=== PATIENT | female | born 1970 | race Caucasian/White ===

== ENCOUNTER 2025-11-01 12:31 | Emergency (ER) | payer OTHER, SELFPAY ==
[2025-11-01 12:39] VITALS: BP 145/69
[2025-11-01 13:43] LABS: Urine Character Clear (Clear)
--- NOTE | 2025-11-01 14:06 | ED.GENMED ---
History of Present Illness
General
Chief Complaint: Flank Pain
Source: patient
Exam Limitations: none
Time Seen by Provider: 11/01/25 13:09
Nursing documentation reviewed up to this point in time: agreed with
History of Present Illness
History of Present Illness:
Patient is a 55-year-old healthy female who presents to the emergency department for evaluation of right flank pain. Patient states she gradually noticed discomfort in her right back/flank around 5 PM yesterday evening. She states this morning
pain was worse prompting evaluation the emergency department. She describes an aching/sharp pain in her right mid back without radiation into her abdomen. Pain is worse with certain movements or coughing. While in the waiting room�she did not
endorse mild chest discomfort which is not exertional or pleuritic in nature. She thinks this may have been related to stress.
Patient denies any fever, chills, nausea or vomiting. No dysuria or hematuria. No chest pain or shortness of breath
Patient reports a past history of kidney stones > 20 years ago. She recently had a stress test performed by cardiology which was unremarkable.
No recent travel or recent surgeries. However�she did recently start hormone replaced therapy.
No recent inciting injury or trauma.
Review of Systems
Review of Systems
Allergies reviewed?: Yes
All Other Systems: ROS reviewed and negative except as documented in HPI and ROS
Phy Exam
Physical Exam
Physical Exam:
Vitals: Mildly hypertensive, otherwise vital signs stable. Afebrile
General: Patient is well appearing, no acute distress
Skin: Warm and dry, no rashes or lesions
Head: Normocephalic, atraumatic
Eyes: Sclera nonicteric.
Throat: Protecting airway
Neck: Normal ROM, no cervical spine tenderness, no meningismus
Cardiac: Regular rate and rhythm, no murmurs.
Pulm: Normal respiratory effort. Lungs clear bilaterally
Abdomen: Abdomen soft and nontender. No reproducible tenderness in right upper quadrant, negative Bullard sign. No focal tenderness at McBurney's point.
Back: No midline spinal tenderness. Mild reproducible tenderness in right flank without rash or ecchymoses. No CVA tenderness
Extremities: No evidence of cyanosis or edema
Neuro: AAOx3. Grossly intact
Psychiatric: Normal affect.
Course
Orders/Labs/Results
Orders:
Orders
11/01/25 12:49
Urinalysis Reflex To Culture Urgent
Date Specimen was Collected: 11/01/25
Time Specimen was Collected: 12:46
Urine Microscopic Reflex Cult Urgent
11/01/25 13:50
Electrocardiogram (*1) Urgent
Reason for Study: Chest Pain
EKG- Treatment ONCE
0.9% Sodium Chloride 1000 ml [Nss] 1,000 ml IV BOLUS
Ketorolac [Toradol] 15 mg IV NOW STA
Lidocaine [Lidocaine 4% Patch] 1 patch TOPICAL NOW STA
Apply Lidocaine patch(s) to:: right mid back
11/01/25 14:25
Complete Blood Count/With Diff Urgent
Comprehensive Metabolic Panel Urgent
D-Dimer Urgent
Troponin I Urgent
11/01/25 14:51
CT Abd/pelvis W Iv Cont Urgent
Comment:
Reason For Exam: Right flank pain
11/01/25 17:25
Electrocardiogram (*1) Urgent
Reason for Study: Chest Pain
EKG- Treatment ONCE
11/01/25 17:32
Troponin I Urgent
Abnormal Lab Results
11/01/25 11/01/25
12:49 14:25
MCHC 32.9 L g/dL
(33.0-37.0)
Plt Count 123 L 10^3/uL
(130-400)
MPV 12.2 H fL
(7.4-10.4)
Absolute Monos (auto) 0.7 H 10^3/uL
(0.1-0.6)
Monocytes % 10.5 H %
(1.7-9.3)
BUN 22 H mg/dl
(7-17)
Urine Bacteria (Reflex) Few A
(Negative)
Urine Albumin (Reflex) 1+ A
(Neg - Trace)
11/01/25 14:25
11/01/25 14:25
Vital Signs
Initial and Last Documented VS:
Initial Vital Signs
Temp Pulse Resp BP Pulse Ox
98.3 F 67 20 145/69 100
11/01/25 12:39 11/01/25 12:39 11/01/25 12:39 11/01/25 12:39 11/01/25 12:39
Last Documented Vital Signs
Temp Pulse Resp BP Pulse Ox
98.3 F 60 18 105/73 95
11/01/25 12:39 11/01/25 17:33 11/01/25 17:33 11/01/25 17:33 11/01/25 17:33
MDM/Problems Addressed
Differential Diagnosis Includes:
Not limited to: Renal colic, pyelonephritis, biliary colic, acute cholecystitis, muscle strain/spasm, pulmonary embolism, ACS
MDM/Problems Addressed:
55-year-old female with one day of right flank discomfort, positional in nature. No associated shortness of breath, fever, or productive cough. No abdominal pain or urinary symptoms. She did report brief episode of chest discomfort while in waiting
room of ED. Remote history of kidney stones.
Vitals and physical exam as above.
Differential broad. Positional component suspicious for musculoskeletal etiology, however no known injury. Renal colic considered. Less likely other intra-abdominal source with benign abdominal exam. While overall low suspicion for pulmonary/cardiac
etiology, with report of chest pain and recent initiation of hormone replacement � pulmonary embolism and cardiac process would be on differential.
Will give lidocaine patch and dose of Toradol. Will check labs, UA, cardiac enzymes and d-dimer.
Update: labs unremarkable. D-dimer and troponin negative. EKG without any evidence of acute ischemia. UA without RBCs or evidence of infection.
She reports improvement in symptoms following medication in ED however still with some positional discomfort. No pain at rest. Her chest pain has completely resolved.
CT scan with IV contrast was obtained without evidence of obstructing ureteral calculi or other intra-abdominal process.
Impression is likely musculoskeletal back pain. Do not suspect infectious process or vascular catastrophe. Work up in ED has been negative. Will trend troponin for completeness, although cardiac evaluation thus far very reassuring especially with
recent unremarkable stress test outpatient.
Will plan for outpatient management if serial troponin undetectable. Discussed all findings with patient at length. Case signed out to Vee MUSTAFA pending troponin.
Chronic conditions affecting care:
N/A
Acute Exacerbation and/or Progression of Chronic Illness:
N/A
*Pulse Oximetry
SaO2: 100
Oxygen Mode of Delivery: Room air
Patient hypoxic: no
*EKG
Interpreted by ED Provider?: Yes
EKG Intrepretation Date: 11/01/25
Interpretation: abnormal
Comparison EKG: no comparison EKG present
Heart Rate: 66
Rate: normal
Rhythm: sinus
[place]: normal axis
Interval: normal QT interval
QRS Pattern: normal QRS
Ischemia: no ischemia
*Tie Sawyer Interpretation
Rate: Tie Sawyer- N/A
*Critical Care Note
Total Time (30-74mins, 75-104mins- exclusive of procedures): Not Applicable
ED Attending Note
-
Portions of this chart may have been created with voice recognition software.� Occasional wrong word or��sound alike� substitutions may have occurred due to the inherent limitations of voice recognition software.
Discharge Plan
Departure
Patient Disposition: Home (Routine Discharge)
Date of Disposition: 11/01/25
Time of Disposition: 18:06
Patient with high blood pressure during this ER visit?: Yes
Discharge Problem:
Right flank pain
Instructions: Flank Pain (DC), BLOOD PRESSURE
Referrals:
Tesfaye Rooney DO [Family Provider, Family Practice] - Follow up in 5-7 days
Activity Restrictions/Additional Instructions:
RETURN TO THE EMERGENCY DEPARTMENT ANY FEVER, CHEST PAIN OR SHORTNESS OF BREATH, URINARY DIFFICULTIES, ABDOMINAL PAIN OR LACK OF APPETITE, OR ANY OTHER CONCERNS
- As discussed your lab work and urinalysis showed no acute abnormalities today in emergency department. Your CT scan did reveal findings of constipation however no other acute intra-abdominal process.
- Please continue to take Tylenol and/or Motrin as needed for flank pain. You can apply topical lidocaine patches. Stay well-hydrated and take MiraLAX as needed for constipation.
- Follow-up with primary care for further evaluation/management to ensure that your symptoms are improving
Monitor your symptoms closely and return to the emergency department with any acute worsening/new symptoms or any other concerns
Interventions
Interventions:
*General Assessment Last Done: 11/01/25 17:02
*Neglect/Abuse Screening Last Done: 11/01/25 17:02
*ED COVID-19 Vaccine History Last Done: 11/01/25 17:02
*ED Influenza Vaccine History Last Done: 11/01/25 17:02
[facility] Risk Assessment Tool Last Done: 11/01/25 17:02
*Risk Screen - Suicide (C-SSRS) Last Done: 11/01/25 17:02
*Nursing Disposition Last Done: 11/01/25 18:18
EJ-Awuwel-Mdcfpnpwlv Assessment Last Done: 11/01/25 17:02
ED-Female Genitourinary Assessment Last Done: 11/01/25 17:02
Discharge Date and Time
Discharge Date/Time: 11/01/25 18:19
Print Language: [id number]
[2025-11-01 14:23] VITALS: BMI 32.1
[2025-11-01 14:26] LABS: Urine Red Blood Cell 0-2 /HPF (0-2); Urine White Cell 0-2 /HPF (0-5)
[2025-11-01] MEDS: LIDOCAINE 4% PATCH 1 PATCH TOPICAL (14:28)
[2025-11-01] MEDS: TORADOL 15 MG IV (14:29)
[2025-11-01] MEDS: NSS 1000 IV (14:30)
[2025-11-01 14:41] LABS: Hematocrit 43.1 % (37.0-47.0); Hemoglobin 14.2 g/dL (12.0-16.0); Mean Corp Hgb Conc. 32.9 g/dL (33.0-37.0); Mean Corpuscular Volume 86.2 fL (81.0-99.0); Nucleated Red Blood Cells % 0 %; Platelet Count 123 10^3/uL (130-400); Red Cell Dist. Width 12.7 % (11.5-14.5)
[2025-11-01 14:49] LABS: ALT (SGPT) 17 U/L (0-35); AST (SGOT) 24 U/L (14-36); Albumin 4.3 g/dl (3.5-5.0); Alkaline Phosphatase 86 U/L (38-126); Blood Urea Nitrogen 22 mg/dl (7-17); Calcium 9.0 mg/dl (8.4-10.2); Carbon Dioxide 29 mmol/L (22-30); Chloride 103 mmol/L (98-107); D-Dimer < 0.27 ug/mlFEU (0.00-0.50); Estimated Creatinine Clearance 93 ml/min; Glucose 86 mg/dl (70-99); Potassium 4.2 mmol/L (3.5-5.1); Sodium 136 mmol/L (135-145); Total Protein 6.8 g/dl (6.3-8.2); eGFR > 60.00
[2025-11-01 15:01] LABS: Troponin I 0.012 ng/ml
[2025-11-01 17:33] VITALS: BP 105/73
[2025-11-01 18:04] LABS: Troponin I < 0.012 ng/ml
== END 2025-11-01 18:19 | disposition home or self-care (01) ==
LOC: EMR 12:31
PROVIDERS: Emergency Medicine; Physician Assistant; EMERGENCY PHYSICIAN Emergency Medicine; FAMILY PHYSICIAN Family Medicine
DX: R10.A1 Flank pain, right side (principal); Z87.442 Personal history of urinary calculi
CPT/HCPCS: 96374; 96361; 99284; 74177; 80053; 81003; 81015; 84484; 85025; 85379; 93005; Q9967